=== PATIENT | female | born 1945 | race Caucasian/White ===

== ENCOUNTER 2019-09-17 10:38 | Day surgery (SDC) | payer OTHER ==
[~2019-09-17 10:38] MED LIST: CYCLOPENTOLATE HCL 1% OPHTH SOLN 2 ML BOTTLE OD SCH; KETOROLAC TROMETHAMINE 0.5% EYE DROP 1 DROP DROPS OD SCH; OFLOXACIN 0.3% OPHTHALMIC SOLUTION 5 ML BOTTLE OD SCH; PHENYLEPHRINE 2.5% OPHTH SOLN 15 ML BOTTLE OD SCH; TROPICAMIDE 1% OPHTH SOLN 15 ML BOTTLE OD SCH
[2019-09-17] MEDS: TROPICAMIDE 1% OPHTH SOLN 15 ML BOTTLE ONE ×5 (11:10→11:30)
[2019-09-17] MEDS: OFLOXACIN 0.3% OPHTHALMIC SOLUTION 5 ML BOTTLE ONE ×5 (11:10→11:30)
[2019-09-17] MEDS: PHENYLEPHRINE 2.5% OPHTH SOLN 15 ML BOTTLE ONE ×5 (11:10→11:30)
[2019-09-17] MEDS: KETOROLAC TROMETHAMINE 0.5% EYE DROP 1 DROP DROPS ONE ×5 (11:10→11:30)
[2019-09-17] MEDS: CYCLOPENTOLATE HCL 1% OPHTH SOLN 2 ML BOTTLE ONE ×5 (11:10→11:30)
[2019-09-17] MEDS ORDERED: BACITRACIN/POLYMYXIN OPH OINT 3.5 GM TUBE ONE (12:11)
[2019-09-17] MEDS ORDERED: NEO/POLYMYX B SULF/DEXAMETH OPHTHALMIC 5ML BOTTLE ONE (12:11)
[2019-09-17] MEDS ORDERED: ACETAMINOPHEN 325 MG TABLET (FP) PO PRN (12:11)
[2019-09-17] MEDS ORDERED: EPI-SHUGARCAINE (EPINEPHRINE 0.025% & LIDOCAINE-PF 0.75%) 4ML ONE (12:11)
[2019-09-17] MEDS ORDERED: POVIDONE-IODINE 5% OPHTHALMIC PREP 30 ML SOLUTION ONE (12:11)
[2019-09-17] MEDS ORDERED: BETAXOLOL HCL 0.25% OPHTHALMIC 10 ML DROPSBTL ONE (12:11)
[2019-09-17] MEDS ORDERED: MIDAZOLAM HCL 2 MG/2 ML SINGLE DOSE VIAL ONE (12:48)
[2019-09-17] MEDS ORDERED: BSS (NA/CA/MG/K) BALANCED SALT SOLUTION OPHTH SOLN 15 ML BOTTLE ONE (12:53)
[2019-09-17] MEDS ORDERED: ACETAMINOPHEN 325 MG TABLET (FP) ONE (13:26)
--- NOTE | 2019-09-18 07:31 | OP ---
DATE OF OPERATION: 09/17/2019 PREOPERATIVE DIAGNOSIS: Cataract, right eye. POSTOPERATIVE DIAGNOSIS: Cataract, right eye. PROCEDURE PERFORMED: Cataract extraction via phacoemulsification with insertion of posterior chamber lens implant, right eye. SURGEON: Reg Hurley M.D. ASSISTANTS: 1. Fozia Ji M.D. 2. Reg Hurley M.D. ANESTHESIA: Topical, with sedation. ESTIMATED BLOOD LOSS: Less than 1 mL. COMPLICATIONS: None. SPECIMENS: None. DESCRIPTION OF PROCEDURE: The patient was identified in the holding area. After all risks, benefits and alternatives were explained to the patient, informed consent was obtained. The right eye was marked with a marking pen. The patient then entered the operating room on an Eye Stretcher. After a formal time-out was performed, topical tetracaine eye drops were instilled onto the right eye. The right eye was then prepped and draped in the usual sterile fashion. An eyelid speculum was placed beneath the eyelids of the right eye. An supratemporal paracentesis incision was created using a 15-degree blade. Topical preservative-free epinephrine and preservative-free lidocaine were then injected into the anterior chamber. Viscoelastic then was injected into the anterior chamber. A 2.4-mm keratome blade was then used to make a inferotemporal incision. A 360-degree continuous curvilinear capsulorrhexis was then created using a bent cystotome and Utrata forceps. Hydrodissection was performed using balanced-saline solution on a cannula. Phacoemulsification was introduced to disassemble and remove the nucleus in its entirety. Irrigation/aspiration was then used to remove any remaining cortical material from the eye. The capsular bag was reformed using viscoelastic. An Waldemar model [id number] with a power of 24.5 diopters, serial number [id number], was inspected and found to be defect free and injected into the capsular bag. Irrigation/aspiration was then used to remove any remaining viscoelastic from the eye. The anterior chamber was reformed using balanced-saline solution. All wounds were hydrated with balanced-saline solution and noted to be watertight. The anterior chamber was deep. The lens was perfectly centered in the capsular bag. There was a red reflex present, and the eye had an adequate pressure. Topical antibiotic eye drops and ointment were then administered onto the right eye. The eyelid speculum was removed from the right eye. The right eye was shielded. The patient tolerated the procedure well and left the operating room in stable condition. She is to follow up with me in the eye clinic tomorrow morning at 10 o'clock. REG HURLEY M.D. MANISH/[id number]
== END 2019-09-17 14:00 | disposition home or self-care (01) ==
LOC: FASU 10:38
PROVIDERS: ATTEND Ophthalmology
PROC: 08RJ3JZ Replacement of Right Lens with Synthetic Substitute, Percutaneous Approach (ICD-10-PCS; principal; 2019-09-17 12:54)
DX: H26.9 Unspecified cataract (principal)
CPT/HCPCS: 82962